=== PATIENT | male | born 1950 | race Caucasian/White ===

== ENCOUNTER 2024-07-20 17:31 | Emergency (ER) | payer MEDICARE, SELFPAY ==
[2024-07-20] VITALS (45 sets, daily range): BP systolic 78–152; BP diastolic 38–87; PULSE 92–107; TEMP 36.4; O2SAT 92–100; BMI 33.1
--- NOTE | 2024-07-20 17:49 | ECG_ITS ---
The [facility] Test Date: 2024-07-20 Pat Name: ZHENG LEES Department: Room: - Gender: Male Medical Doctor: : 1950 Requested By: Order Number: [id number] Reading MD: CHINYERE FRANCISCO Measurements Intervals [place] Rate: 97 P: 120 WA: 294 QRS: -14 QRSD: 112 T: -30 QT: 392 QTc: 447 Interpretive Statements Sinus rhythm with first degree AV block Remote anteroseptal [place] 45[address] Tw[place] abnormality, possible lateral ischemia 9150 abnormal ECG No previous ECG available for comparison Electronically Signed On 07-21-2024 7:46:07 EST by CHINYERE FRANCISCO
--- NOTE | 2024-07-20 17:50 | XR_ITS ---
The [address] [address] Patient Name: ZHENG LEES MRN: [id number] date: 1950 Sex: M Assigned Patient Location: ER Current Patient Location: ED.MAIN Accession/Order Number: [id number] Exam Date: 07/20/2024 19:06 Report Date: 07/20/2024 20:11 At the request of: JOSELUIS VARELA Procedure: XR chest 1V EXAM: XR chest 1V TECHNIQUE: Single AP view chest HISTORY: Chest pain COMPARISON: None. FINDINGS: The heart and mediastinum are unremarkable. The lung stout are clear of any acute infiltrate, effusion or mass. No acute bony abnormality. XR/XR chest 1V IMPRESSION: No acute pulmonary disease. Electronically authenticated by: SARIAH SIMMS Date: 07/20/2024 20:11
--- NOTE | 2024-07-20 17:51 | ED.GENADUL1 ---
HPI HPI - General Adult General Chief complaint: Back Pain/Injury Stated complaint: LEFT SIDE PAIN Time Seen by Provider: 07/20/24 17:45 Source: patient Mode of arrival: walk-in Limitations: no limitations History of Present Illness HPI narrative: 74-year-old male presents for abdominal pain which goes up into his chest. He has had it for 2 days and it got worse yesterday. He states he vomited. He states he has a history of gastroparesis and it seems similar. No fever or hematemesis. The pain is continuous and he is requesting pain medication. He also points to lower back pain which is chronic for him. Related Data Allergies Allergy/AdvReac Type Severity Reaction Status Date / Time No Known Drug Allergies Allergy Verified 07/20/24 17:38 Opioid HPI Opioid Management Most Recent Opioid Data: Last SEP Pain Assessment 07/20/24 18:21 Review of Systems ROS Narrative A ten point review of systems is negative except as noted above. PFSH PFSH Social History Little interest or pleasure in doing things: not at all Feeling down, depressed, or hopeless: not at all Exam Narrative Exam Narrative: Nurses note and vital signs reviewed and patient is not hypoxic. General: The patient appears in no apparent distress. Skin: Warm, dry, no pallor noted. There is no rash noted. Head: Normocephalic, atraumatic Eye: Normal conjunctiva, no drainage Ears, Nose, Mouth, and Throat: oral mucosa is moist. Nares patent. Cardiovascular: Regular Rate and Rhythm Respiratory: Patient is in no distress, no accessory muscle use, lungs are clear to auscultation, no wheezing, rales or rhonchi Back: No bruise or rash. GI: Obese and nondistended. He has no bruise or rash on his abdomen. He has some tenderness in the epigastric area Musculoskeletal: The patient has no evidence of calf tenderness, no pitting edema, symmetrical pulses noted bilaterally Neurological: A&O x4, normal speech Psychiatric: Cooperative Constitutional Vital Signs, click to edit/add: Last Vital Signs Temp 97.5 F L 07/20/24 17:35 Pulse 107 H 07/20/24 17:35 Resp 20 07/20/24 17:35 BP 130/77 07/20/24 17:35 Pulse Ox 100 07/20/24 17:35 O2 Del Method Room Air 07/20/24 17:35 Course Vital Signs Vital signs: Vital Signs Temperature 97.5 F L 07/20/24 17:35 Pulse Rate 107 H 07/20/24 17:35 Respiratory Rate 20 07/20/24 17:35 Blood Pressure 130/77 07/20/24 17:35 Pulse Oximetry 100 07/20/24 17:35 Oxygen Delivery Method Room Air 07/20/24 17:35 Temperature 97.5 F L 07/20/24 17:35 Pulse Rate 107 H 07/20/24 17:35 Respiratory Rate 20 07/20/24 17:35 Blood Pressure 130/77 07/20/24 17:35 Pulse Oximetry 100 07/20/24 17:35 Oxygen Delivery Method Room Air 07/20/24 17:35 Medical Decision Making MDM Narrative Medical decision making narrative: Tests are ordered and pending and the patient is signed out to Dr. Meehan at change of shift. Differential Diagnosis Differential Diagnosis: Abdominal pain, pancreatitis, duodenitis, colitis, myocardial infarction ECG Data Attestation: I personally reviewed and interpreted this ECG as follows: (EKG on my interpretation shows rate of 97 and first-degree AV block) Discharge Plan Discharge Patient Disposition: Still a Patient
[2024-07-20] MEDS: MORPHINE SULFATE 4 MG/ML VIAL IV (18:21)
[2024-07-20] MEDS: 0.9 % SODIUM CHLORIDE 500 ML IV (18:21)
[2024-07-20] MEDS: ONDANSETRON PF 4 MG/2 ML VIAL IV (18:21)
[2024-07-20] MEDS: PANTOPRAZOLE SODIUM 40 MG VIAL IV (18:22)
[2024-07-20 19:20] LABS: Basophils Percent Auto 0.3 % (0.2-2.0); Hematocrit 40.5 % (42.0-54.0); Hemoglobin 13.2 g/dL (14.0-18.0); Immature Granulocytes Abs Auto 0.06 10^3/uL (0.00-0.03); Immature Granulocytes Pct Auto 0.4 % (0.0-0.5); Lymphocytes Absolute Auto 0.9 10^3/uL (1.2-3.8); Lymphocytes Percent Auto 6.1 % (20.5-60.0); Mean Corpuscular HGB Conc 32.6 g/dL (29.9-35.2); Mean Corpuscular Hemoglobin 28.7 pg (25.9-34.0); Monocytes Absolute Auto 1.1 10^3/uL (0.3-0.8); Monocytes Percent Auto 7.9 % (1.7-12.0); Neutrophils Absolute Auto 11.9 10^3/uL (1.4-6.5); Neutrophils Percent Auto 85.3 % (43.0-75.0); Platelet Count 272 10^3/uL (150-450); Red Cell Distribution Width 13.7 % (11.0-15.0)
[2024-07-20 19:36] LABS: Anion Gap 20.3; BUN Creatinine Ratio 24.7; Calcium 9.6 mg/dL (8.5-10.1); Carbon Dioxide 24.8 mmol/L (21.0-32.0); Chloride 95 mmol/L (98-107); Estimated GFR (African America 50 (>=60 mL/min/1.73m^2); Estimated GFR (Non-African Ame 41 (>=60 mL/min/1.73m^2); Potassium 5.1 mmol/L (3.5-5.1); Sodium 135 mmol/L (136-145)
[2024-07-20 19:37] LABS: Alanine Aminotransferase 17 U/L (16-63); Albumin Globulin Ratio 0.6; Albumin Level 3.3 g/dL (3.4-5.0); Alkaline Phosphatase 65 U/L (46-116); Amylase 19 U/L (25-115); Aspartate Amino Transferase 26 U/L (15-37); Bilirubin Direct 0.2 mg/dL (0.0-0.2); Globulin 5.1 g/dL; Total Protein 8.4 g/dL (6.4-8.2)
[2024-07-20 19:40] LABS: Troponin I High Sensitivity 2955.6 pg/mL (4.0-76.1)
[2024-07-20 19:41] LABS: Glucose 597 mg/dL (74-106)
[2024-07-20 20:02] LABS: Bilirubin Total 0.7 mg/dL (0.2-1.0)
[2024-07-20 20:15] LABS: Bilirubin Urine NEGATIVE (NEGATIVE); Blood Urine MODERATE (NEGATIVE); Color Urine LT. YELLOW (YELLOW); Glucose Urine UA >=1000 mg/dL (NEGATIVE); Ketones Urine 15 mg/dL (NEGATIVE); Leukocyte Esterase Urine TRACE (NEGATIVE); Nitrite Urine POSITIVE (NEGATIVE); Protein Urine NEGATIVE (NEG/TRACE); Urobilinogen Urine 0.2 EU/dL (0.2-1.0); pH Urine 5.5 (5.0-9.0)
[2024-07-20 20:21] LABS: Clarity Urine CLOUDY (CLEAR); Urine Microscopic Indicated YES
[2024-07-20 20:24] LABS: Partial Thromboplastin Time 27.9 sec (22.3-36.2)
[2024-07-20 20:25] LABS: Bacteria Urine MODERATE #/HPF (NONE SEEN); Cast Seen? NONE SEEN #/LPF (NONE SEEN); Crystals Seen? None Seen #/HPF (None Seen); Mucus Urine NONE SEEN (NONE SEEN); Squamous Epithelial Cell Urine NONE SEEN #/LPF (NONE/RARE); Urine Culture Indicated YES; WBC Urine >100 #/HPF (NONE SEEN)
[2024-07-20 20:36] LABS: Troponin I High Sensitivity 3192.1 pg/mL (4.0-76.1)
[2024-07-20] MEDS: INSULIN REGULAR IN 0.9 % NACL 100 UNIT/100 ML PLAST..BAG 10.161 UNIT IV (20:36)
[2024-07-20 20:38] LABS: Glucometer 500 mg/dL (74-106)
[2024-07-20] MEDS: HYDROMORPHONE HCL 0.5 MG/0.5 ML SYRINGE IV (20:38)
[2024-07-20] MEDS: ASPIRIN 81 MG TAB.CHEW 324 MG PO (20:38)
[2024-07-20] MEDS: HEPARIN SODIUM (PORCINE) 5,000 UNIT/ML VIAL 2700 UNIT IV (21:05)
[2024-07-20] MEDS: HEPARIN SODIUM,PORCINE/D5W 25,000 UNIT/500 ML IV.SOLN 20 UNIT IV (21:05)
[2024-07-20] MEDS: CEFTRIAXONE 1,000 MG in 0.9 % SODIUM CHLORIDE 50 ML 100 MG IV (21:33)
[2024-07-20 21:50] LABS: Glucometer 439 mg/dL (74-106)
[2024-07-20 23:01] LABS: Glucometer 421 mg/dL (74-106)
[2024-07-20] MEDS: NOREPINEPHRINE BITARTRATE/D5W 4 MG/250 ML PREMIX 30 MG IV (23:24)
[2024-07-20 23:27] LABS: Troponin I High Sensitivity 3543.8 pg/mL (4.0-76.1)
== END 2024-07-20 23:56 | disposition short-term general hospital (02) ==
PROVIDERS: Emergency Medicine; Emergency Provider Emergency Medicine; PCP Family Medicine
DX: I21.4 Non-ST elevation (NSTEMI) myocardial infarction (principal); Z98.84 Bariatric surgery status; E66.9 Obesity, unspecified; I10 Essential (primary) hypertension; E78.00 Pure hypercholesterolemia, unspecified; E11.9 Type 2 diabetes mellitus without complications; N39.0 Urinary tract infection, site not specified; M54.50 Low back pain, unspecified; G89.29 Other chronic pain
CPT/HCPCS: 36415; 71045; 80048; 80076; 81001; 82150; 82948; 83690; 84484; 85025; 85730; 87086; 87186; 93005; 96365; 96366; 96368; 96375; 96376; 99285; J0696; J1171; J1644; J2270; J2405